=== PATIENT | female | born 1955 | race Caucasian/White ===

== ENCOUNTER 2024-10-07 18:30 | Emergency (ER) | payer MEDICARE ==
[~2024-10-07] VITALS: Ht 170.2 cm; Wt 63.5 kg
[2024-10-07 19:00] VITALS: BP 130/72
[2024-10-07] MEDS ORDERED: ONDANSETRON ODT 4 MG TAB.RAPDIS ONE (19:43)
[2024-10-07] MEDS ORDERED: HYDROCODONE/APAP 10-325 MG TABLET ONE (19:44)
[2024-10-07] MEDS: ONDANSETRON ODT 4 MG TAB.RAPDIS SL ONE (19:48)
[2024-10-07] MEDS: HYDROCODONE/APAP 10-325 MG TABLET PO ONE (19:48)
[2024-10-07] MEDS ORDERED: HYDR-3980 PO (20:22)
[2024-10-07] MEDS ORDERED: ONDA4TAB11 PO (20:22)
[2024-10-07] MEDS ORDERED: TDAP DIPH,PERTUSS,TET VAC/PF 0.5 ML DISP.SYRIN IM ONE (20:25)
[2024-10-07] MEDS: TDAP DIPH,PERTUSS,TET VAC/PF 0.5 ML DISP.SYRIN IM ONE (20:47)
[2024-10-07 20:56] VITALS: BP 136/78; O2SAT 98
== END 2024-10-07 21:02 | disposition home or self-care (01) ==
LOC: ER 18:30
DX: S83.8X1A Sprain of other specified parts of right knee, initial encounter (principal); S80.11XA Contusion of right lower leg, initial encounter; S80.812A Abrasion, left lower leg, initial encounter; W10.9XXA Fall (on) (from) unspecified stairs and steps, initial encounter; Y93.89 Activity, other specified; Y92.89 Other specified places as the place of occurrence of the external cause; Y99.8 Other external cause status
CPT/HCPCS: 73590; 73610; 73630; 90715; A4606; A4663; Q0162